=== PATIENT | male | born 1950 | race Caucasian/White ===

== ENCOUNTER 2016-11-26 15:41 | Emergency (ER) | payer BC, OTHER ==
[2016-11-26 16:10] VITALS: BP 153/90; PULSE 62; TEMP 98.4; BMI 27.3
[2016-11-26] MEDS ORDERED: ACETAMINOPHEN 325 MG TABLET (FP) PO ONE (17:44)
[2016-11-26] MEDS ORDERED: ACETAMINOPHEN 325 MG TABLET (FP) ONE (17:46)
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
== END 2016-11-26 17:49 | disposition home or self-care (01) ==
LOC: JERFT 15:41
DX: S43.401A Unspecified sprain of right shoulder joint, initial encounter (principal); I10 Essential (primary) hypertension; I48.91 Unspecified atrial fibrillation; F17.210 Nicotine dependence, cigarettes, uncomplicated; V43.62XA Car passenger injured in collision with other type car in traffic accident, initial encounter; Y92.414 Local residential or business street as the place of occurrence of the external cause; Y93.89 Activity, other specified
CPT/HCPCS: 99281-25

== ENCOUNTER 2018-04-28 10:50 | Emergency (ER) | payer OTHER, BC ==
[2018-04-28 11:09] VITALS: BP 146/88; TEMP 98.1; BMI 27.7
[2018-04-28 11:38] VITALS: PULSE 46
--- NOTE | 2018-04-28 11:38 | PDOC ---
History of Present Illness - General Chief Complaint: Pain Stated Complaint: LT HAND PAIN Time Seen by Provider: 04/28/18 11:19 - History of Present Illness Initial Comments: 67-year-old male presents for evaluation of left hand pain times a few hours. He denies any trauma or precipitating event. No prior problems with the hand. No other associated symptoms. He takes overall toe for atrial fibrillation. 04/28/18 11:32 Past History - Past Medical History Allergies/Adverse Reactions: Allergies Allergy/AdvReac Type Severity Reaction Status Date / Time Penicillins Allergy Rash Verified 04/28/18 11:04 ibuprofen AdvReac Verified 04/28/18 11:04 Home Medications: Ambulatory Orders Methylprednisolone [Medrol Dose Rojelio] 4 mg PO ASDIR #21 tablet 04/28/18 Rivaroxaban [Xarelto -] 20 mg PO DAILY 04/28/18 Anemia: No Asthma: No Cancer: Yes (CA BLADDER S/P IN 2007) Cardiac Disorders: Yes (A FIB) CVA: No COPD: No CHF: No Dementia: No Diabetes: No GI Disorders: No Disorders: No HTN: Yes Hypercholesterolemia: No Liver Disease: No Seizures: No Thyroid Disease: No - Surgical History Abdominal Surgery: No Appendectomy: Yes Cardiac Surgery: No Cholecystectomy: No Lung Surgery: No Neurologic Surgery: No Orthopedic Surgery: No - Suicide/Smoking/Psychosocial Hx Smoking Status: Yes Smoking History: Former smoker Have you smoked in the past 12 months: No Number of Cigarettes Smoked Daily: 0 If you are a former smoker, when did you quit?: 2001 Cigars Per Day: 1 Information on smoking cessation initiated: No Hx Alcohol Use: No Drug/Substance Use Hx: No Substance Use Type: None Hx Substance Use Treatment: No Review of Systems - Review of Systems Musculoskeletal: Yes: See HPI All Other Systems: Reviewed and Negative *Physical Exam - Vital Signs Last Vital Signs Temp Pulse Resp BP Pulse Ox 98.1 F 44 L 19 146/88 99 04/28/18 11:05 04/28/18 11:05 04/28/18 11:05 04/28/18 11:05 04/28/18 11:05 - Physical Exam Comments: Left hand is mildly erythemic over the dorsum of the third MCP J. There is sensitivity without warmth or induration. There is mild discomfort with extremes of flexion and extension. There is no tenderness over the flexor surface there is no pain with passive stretch or sausagelike edema. FDS and FDP work independently. He has no gross sensorimotor deficits she's neurovascularly intact. 04/28/18 11:37 Medical Decision Making - Medical Decision Making This appears to be acute presentation of gout versus pseudogout. I'll treat him with a Medrol Dosepak and have him follow-up with his primary care physician next 1-2 days. Of note he actually does not have a primary care physician I will give him a list of local providers. 04/28/18 11:38 *DC/Admit/Observation/Transfer Diagnosis at time of Disposition: Gout attack - Discharge Dispostion Disposition: HOME Condition at time of disposition: Stable Decision to Admit order: No - Referrals Referrals: Murali Pena MD [Staff Physician] - - Patient Instructions Printed Discharge Instructions: DI for Gout, Gout Additional Instructions: It appeared to be suffering from an acute gout attack. Please take the medication I prescribed T-wave in its entirety which will help with your pain and inflammation of the left hand. If your symptoms worsen or go unresolved prior to follow-up with her primary care physician please return to the emergency room. I've provided fever primary care doctor in the area who his local he should follow up with. - Post Discharge Activity
== END 2018-04-28 11:48 | disposition home or self-care (01) ==
LOC: JERFT 10:50
DX: M10.9 Gout, unspecified (principal)
CPT/HCPCS: 99281-25

== ENCOUNTER 2019-05-01 11:46 | Emergency (ER) | payer OTHER, BC | END 2019-05-01 13:50 | disposition home or self-care (01) | LOC: JER 11:46 ==

== ENCOUNTER 2019-11-26 14:31 | Inpatient (IN) | payer OTHER, BC ==
--- NOTE | 2019-11-26 14:42 | PDOC ---
Rapid Medical Evaluation Chief Complaint: Pain, Acute Time Seen by Provider: 11/26/19 14:39 Medical Evaluation: Allergies Allergy/AdvReac Type Severity Reaction Status Date / Time Penicillins Allergy Rash Verified 05/01/19 12:10 ibuprofen AdvReac Verified 05/01/19 12:10 Vital Signs Temp Pulse Resp BP Pulse Ox 98 F 69 18 113/75 99 11/26/19 14:36 11/26/19 14:36 11/26/19 14:36 11/26/19 14:36 11/26/19 14:36 11/26/19 14:39 I have performed a brief in-person evaluation of this patient. The patient presents with a chief complaint of: sent in by PCP Dr. Brown for dark stools and abd pains x 1 wk. Denies rectal bleeding, N/V Pertinent physical exam findings: A&O x 3 in NAD. I have ordered the following: CBC, CMP, Lipase The patient will proceed to the ED for further evaluation. Discharge Disposition - Diagnosis Abdominal pain Qualifiers: Abdominal location: lower abdomen, unspecified Qualified Code(s): R10.30 - Lower abdominal pain, unspecified - Discharge Dispostion Condition at time of disposition: Stable - Referrals - Patient Instructions - Post Discharge Activity
[2019-11-26 15:44] LABS: BASO % 0.7 % (0-2.0); HEMATOCRIT 43.7 % (35.4-49); HEMOGLOBIN 14.5 GM/dL (11.7-16.9); LYMPH % 24.5 % (8-40); MCH 31.2 pg (25.7-33.7); MCHC 33.2 g/dl (32.0-35.9); MEAN CELL VOLUME 93.9 fl (80-96); MEAN PLT VOLUME 7.9 fl (7.5-11.1); MONO % 10.1 % (3.8-10.2); NEUT % 60.7 % (42.8-82.8); PLATELET COUNT 214 K/MM3 (134-434); RBC 4.65 M/mm3 (4.00-5.60); RDW 13.7 % (11.9-15.9); WHITE BLOOD COUNT 5.5 K/mm3 (4.0-10.0)
[2019-11-26 16:00] LABS: INR 1.39 (0.83-1.09); PROTHROMBIN TIME (PATIENT) 16.4 SEC (9.7-13.0)
[2019-11-26 16:02] LABS: ACTIVATED PTT 41.3 SECONDS (25.2-36.5)
[2019-11-26 16:08] LABS: LIPASE 115 U/L (73-393)
[2019-11-26 16:14] LABS: ALBUMIN 3.5 g/dl (3.4-5.0); BILIRUBIN,TOTAL 0.8 mg/dL (0.2-1); BLOOD UREA NITROGEN 22.2 mg/dL (7-18); CALCIUM 8.8 mg/dL (8.5-10.1); CREATININE 0.9 mg/dL (0.55-1.3); POTASSIUM 3.9 mmol/L (3.5-5.1); TOT PROT 6.8 g/dl (6.4-8.2)
--- NOTE | 2019-11-26 16:20 | PDOC ---
History of Present Illness - General Chief Complaint: Pain, Acute Stated Complaint: SENT BY PCP/ABD PAIN Time Seen by Provider: 11/26/19 14:39 History Source: Patient - History of Present Illness Initial Comments: 11/26/19 16:26 69 year old male c/o dizziness, black stool x 4 days, epigastric area pain radiating to the midsternal area. decreased PO intake. denies fever/ chills, NVD. Last BM this AM. patient sent by Dr. baker for evaluation Currently on xarelto , heart surgery 9 months ago, gastric sleeve, GI: Dr. Burt Cardiology: [facility] 11/26/19 17:58 Past History - Past Medical History Allergies/Adverse Reactions: Allergies Allergy/AdvReac Type Severity Reaction Status Date / Time Penicillins Allergy Rash Verified 11/26/19 14:39 ibuprofen AdvReac Verified 11/26/19 14:39 Home Medications: Ambulatory Orders Rivaroxaban [Xarelto -] 20 mg PO DAILY 04/28/18 Anemia: No Asthma: No Cancer: Yes (CA BLADDER S/P IN 2007) Cardiac Disorders: Yes (A FIB) CVA: No COPD: No CHF: No Dementia: No Diabetes: No GI Disorders: No Disorders: No HTN: Yes Hypercholesterolemia: No Liver Disease: No Seizures: No Thyroid Disease: No - Surgical History Abdominal Surgery: No Appendectomy: Yes Cardiac Surgery: No Cholecystectomy: No Lung Surgery: No Neurologic Surgery: No Orthopedic Surgery: No - Immunization History Immunization Up to Date: Yes - Psycho Social/Smoking Cessation Hx Smoking Status: Yes Smoking History: Never smoked Have you smoked in the past 12 months: No Number of Cigarettes Smoked Daily: 0 If you are a former smoker, when did you quit?: 2000 Cigars Per Day: 1 Hx Alcohol Use: No Drug/Substance Use Hx: No Substance Use Type: None Hx Substance Use Treatment: No Review of Systems - Review of Systems Able to Perform ROS?: Yes Is the patient limited Sinhala proficient: No Constitutional: No: Symptoms Reported, See HPI, Chills, Diaphoresis, Fever, Loss of Appetite, Malaise, Night Sweats, Weakness, Weight Stable, Unintentional Wgt. Loss, Unexplained wgt Loss, Other ABD/GI: Yes: Abdominal cramping, Tarry Stools *Physical Exam - Vital Signs Last Vital Signs Temp Pulse Resp BP Pulse Ox 98 F 69 18 113/75 99 11/26/19 14:36 11/26/19 14:36 11/26/19 14:36 11/26/19 14:36 11/26/19 14:36 - Physical Exam General Appearance: Yes: Appropriately Dressed Respiratory/Chest: positive: Lungs Clear, Normal Breath Sounds Cardiovascular: positive: Regular Rhythm, Regular Rate Gastrointestinal/Abdominal: positive: Normal Bowel Sounds, Tender (RUQ), Soft Rectal Exam: positive: melena ED Treatment Course - LABORATORY CBC & Chemistry Diagram: 11/26/19 15:30 11/26/19 15:30 - ADDITIONAL ORDERS Additional order review: Laboratory Results 11/26/19 11/26/19 11/26/19 15:30 15:30 15:30 PT with INR 16.40 H INR 1.39 H PTT (Actin FS) 41.3 H Sodium 140 Potassium 3.9 Chloride 108 H Carbon Dioxide 30 Anion Gap 2 L BUN 22.2 H Creatinine 0.9 Est GFR (CKD-EPI)AfAm 100.65 Est GFR (CKD-EPI)NonAf 86.84 Random Glucose 105 Calcium 8.8 Total Bilirubin 0.8 AST 21 ALT 23 Alkaline Phosphatase 41 L Total Protein 6.8 Albumin 3.5 Lipase 115 11/26/19 15:30 RBC 4.65 MCV 93.9 MCHC 33.2 RDW 13.7 MPV 7.9 Neutrophils % 60.7 Lymphocytes % 24.5 Monocytes % 10.1 Eosinophils % 4.0 Basophils % 0.7 ED Progress Note - Progress Note Progress Note: 11/26/19 18:56 A: GI bleeding; chest pain P: labs ekg stool guaiac : + admission Medical Decision Making - Medical Decision Making 11/26/19 19:22 patient signed out to Francisco TONG. patient to be admitted under Dr. baker 11/26/19 21:07 Discharge - Discharge Information Problems reviewed: Yes Clinical Impression/Diagnosis: Abdominal pain Qualifiers: Abdominal location: lower abdomen, unspecified Qualified Code(s): R10.30 - Lower abdominal pain, unspecified GI bleeding Qualifiers: GI bleed type/associated pathology: melena Qualified Code(s): K92.1 - Melena Chest pain Qualifiers: Chest pain type: unspecified Qualified Code(s): R07.9 - Chest pain, unspecified Condition: Stable - Admission Yes - Follow up/Referral - Patient Discharge Instructions - Post Discharge Activity
[2019-11-26] MEDS ORDERED: PANTOPRAZOLE SODIUM 40 MG VIAL IVPB ONE (19:23)
[2019-11-26] MEDS ORDERED: PANTOPRAZOLE SODIUM 40 MG/100 ML BAG IVPB ONE (20:04)
--- NOTE | 2019-11-26 20:25 | HP ---
Admitting History and Physical - Primary Care Physician PCP: Dr. Brown - Admission Chief Complaint: sent by PCP for dark stools, abd pain x1 week History of Present Illness: 69 year old male with PMHx of Ca bldder s/p in 2007, HTN, a-fin (s/p cyroablation 9 months ago) sent to the ER by PMD for black stool x 4 days, epigastric area pain radiating to the mid-sternal area, patient also c/o dizziness, decreased PO intake. Patient denies SOB, fever/ chills, N/V/D. Last BM this AM. According to patient had colonoscopy 2-3 years, and endoscopy less than 1 year ago, no acute findings were reported. History Source: Patient Limitations to Obtaining History: No Limitations - Past Medical History Cardiovascular: Yes: AFIB, HTN, Hyperlipdemia Heme/Onc: Yes: Cancer (bladder) - Past Surgical History Past Surgical History: Yes: Appendectomy, Bariatric Surgery (gastric sleeve) - Smoking History Smoking history: Never smoked Have you smoked in the past 12 months: No Aproximately how many cigarettes per day: 0 If you are a former smoker, when did you quit?: 2000 - Alcohol/Substance Use Hx Alcohol Use: Yes Number of Drinks Daily: 1 (occasional 1-2 drinks per week) - Social History Usual Living Arrangement: Yes: With Spouse ADL: Independent History of Recent Travel: Yes ([facility]) Home Medications - Allergies Allergies/Adverse Reactions: Allergies Allergy/AdvReac Type Severity Reaction Status Date / Time Penicillins Allergy Rash Verified 11/26/19 14:39 ibuprofen AdvReac Verified 11/26/19 14:39 - Home Medications Home Medications: Ambulatory Orders Rivaroxaban [Xarelto -] 20 mg PO DAILY 04/28/18 Family Medical History Family Hx Cancer: Father (pancreatic ca) Family Hx Cardiac Disorders: Mother (HTN) Review of Systems - Review of Systems Constitutional: reports: Loss of Appetite Eyes: reports: No Symptoms HENT: reports: No Symptoms Neck: reports: No Symptoms Cardiovascular: reports: No Symptoms Respiratory: reports: No Symptoms Gastrointestinal: reports: Abdominal Pain, Other (dark stools) Genitourinary: reports: No Symptoms Musculoskeletal: reports: No Symptoms Integumentary: reports: No Symptoms Neurological: reports: Dizziness Endocrine: reports: No Symptoms Hematology/Lymphatic: reports: No Symptoms Psychiatric: reports: No Symptoms Physical Examination Vital Signs: Vital Signs Temperature 97.9 F 11/26/19 17:30 Pulse Rate 50 L 11/26/19 17:30 Respiratory Rate 20 11/26/19 17:30 Blood Pressure 115/82 11/26/19 17:30 O2 Sat by Pulse Oximetry (%) 98 11/26/19 17:30 Constitutional: Yes: No Distress, Calm Eyes: Yes: Conjunctiva Clear, EOM Intact HENT: Yes: Atraumatic, Normocephalic Neck: Yes: Supple, Trachea Midline Cardiovascular: Yes: Regular Rate and Rhythm Respiratory: Yes: Regular, CTA Bilaterally Gastrointestinal: Yes: Normal Bowel Sounds, Soft, Tenderness (mild tender epigastric area) ...Rectal Exam: Yes: Guaiac Positive Renal/: Yes: WNL Musculoskeletal: Yes: WNL Extremities: Yes: WNL Edema: No Peripheral Pulses WNL: Yes Neurological: Yes: Alert, Oriented Labs: CBC, BMP 11/26/19 15:30 11/26/19 15:30 Imaging - Results Chest X-ray: Report Reviewed (no acute consolidation/ infiltration) Ultrasound: Report Reviewed (ABD: no evidence of acute cholecystitis, 1 cm renal lower pole cyst) Problem List - Problems (1) GI bleeding Code(s): K92.2 - GASTROINTESTINAL HEMORRHAGE, UNSPECIFIED Qualifiers: GI bleed type/associated pathology: melena Qualified Code(s): K92.1 - Melena (2) Chest pain Code(s): R07.9 - CHEST PAIN, UNSPECIFIED Qualifiers: Chest pain type: unspecified Qualified Code(s): R07.9 - Chest pain, unspecified (3) Abdominal pain Code(s): R10.9 - UNSPECIFIED ABDOMINAL PAIN Qualifiers: Abdominal location: lower abdomen, unspecified Qualified Code(s): R10.30 - Lower abdominal pain, unspecified (4) A-fib Code(s): I48.91 - UNSPECIFIED ATRIAL FIBRILLATION (5) HTN (hypertension) Code(s): I10 - ESSENTIAL (PRIMARY) HYPERTENSION (6) HLD (hyperlipidemia) Code(s): E78.5 - HYPERLIPIDEMIA, UNSPECIFIED (7) At risk for dehydration due to poor fluid intake Code(s): Z91.89 - OTH PERSONAL RISK FACTORS, NOT ELSEWHERE CLASSIFIED Assessment/Plan 69 year old male with PMHx of Ca bldder s/p in 2007, A-fib (s/p cryoablation 9 months ago) , HTN sent to the ER by PMD for black stool x 4 days, epigastric area pain radiating to the mid-sternal area, patient also c/o dizziness, decreased PO intake. According to patient had colonoscopy 2-3 years, and endoscopy less than 1 year ago, no acute findings were reported. # Abdominal pain # Positive occult blood r/o GI bleed - LFTs, lipase: wnl - ABD US: no evidence of acute cholecystitis, 1 cm renal lower pole cyst - occult blood positive, hgb: 14.5 wnl --> In ED given PPI IVPB x1 - Continue with IV fluids - continue with PPI daily - NPO over night - Monitor H/H - Follow up GI in AM # chest pain (epigastric in nature) less likely ACS # HTN/ A-fib ( s/p cryoablation 9 months ago) tele, cardiac monitoring - trop: negative - EKG: no acute s/t changes - hold xarelto - monitor vitals - cardiology follow in AM # Dehydration likely due to poor po intake - bun: 22.2 - give 1/2 NS x 24 hours - follow up BMP in AM FEN: NPO, IVF, monitor lytes VTE: SCDs Dispo: tele Visit type - Emergency Visit Emergency Visit: Yes ED Registration Date: 11/26/19 Care time: The patient presented to the Emergency Department on the above date and was hospitalized for further evaluation of their emergent condition. - New Patient This patient is new to me today: Yes Date on this admission: 11/26/19 - Critical Care Critical Care patient: No
[2019-11-26] MEDS ORDERED: SODIUM CHLORIDE 1,000 ML IV SCH (21:45)
[2019-11-27 01:10] VITALS: BMI 26.3
[2019-11-27 07:35] LABS: BLOOD UREA NITROGEN 20.2 mg/dL (7-18); CALCIUM 8.3 mg/dL (8.5-10.1); CREATININE 0.8 mg/dL (0.55-1.3); POTASSIUM 4.4 mmol/L (3.5-5.1)
[2019-11-27] MEDS ORDERED: PANTOPRAZOLE SODIUM 40 MG VIAL IVPUSH SCH (10:00)
--- NOTE | 2019-11-27 12:58 | CON.CARD ---
Consult Consult Specialty:: Cardiology Referred by:: Stephanie Reason for Consultation:: Anticoagulation management In the setting of GI bleed - History of Present Illness Chief Complaint: Black stools History of Present Illness: The patient is a 69-year-old man, with a history of hypertension, atrial fibrillation, status post ablation earlier this year, on Xarelto, now presenting we have abdominal pain and melena. The patient reports good exercise tolerance. Denies chest pains and shortness of breath on effort. No palpitations. He is currently in sinus bradycardia with first-degree AV block. No acute ST-T changes. No chest pains. Breathing comfortably. - History Source History Provided By: Patient, Medical Record Limitations to Obtaining History: No Limitations - Past Medical History Cardio/Vascular: Yes: AFIB, HTN, Hyperlipdemia Gastrointestinal: Yes: Cancer (bladder) - Past Surgical History Past Surgical History: Yes: Appendectomy, Bariatric Surgery (gastric sleeve) - Alcohol/Substance Use Hx Alcohol Use: Yes Number of Drinks Daily: 1 (occasional 1-2 drinks per week) - Smoking History Smoking history: Never smoked Have you smoked in the past 12 months: No Aproximately how many cigarettes per day: 0 If you are a former smoker, when did you quit?: 2000 - Social History Usual Living Arrangement: With Spouse ADL: Independent History of Recent Travel: [place] ([place]) Home Medications - Allergies Allergies/Adverse Reactions: Allergies Allergy/AdvReac Type Severity Reaction Status Date / Time Penicillins Allergy Rash Verified 11/26/19 14:39 ibuprofen AdvReac Verified 11/26/19 14:39 - Home Medications Home Medications: Ambulatory Orders Rivaroxaban [Xarelto -] 20 mg PO DAILY 04/28/18 Review of Systems - Review of Systems Constitutional: reports: No Symptoms Eyes: reports: No Symptoms HENT: reports: No Symptoms, Hearing Loss Neck: reports: No Symptoms Cardiovascular: reports: No Symptoms Respiratory: reports: No Symptoms Gastrointestinal: reports: Abdominal Pain, Bloating, Melena Genitourinary: reports: No Symptoms Breasts: reports: No Symptoms Reported Musculoskeletal: reports: No Symptoms Integumentary: reports: No Symptoms Neurological: reports: No Symptoms Endocrine: reports: No Symptoms Hematology/Lymphatic: reports: No Symptoms Psychiatric: reports: No Symptoms Vital Signs: Vital Signs Temperature 98.2 F 11/27/19 07:58 Pulse Rate 46 L 11/27/19 07:58 Respiratory Rate 20 11/27/19 08:03 Blood Pressure 126/78 11/27/19 07:58 O2 Sat by Pulse Oximetry (%) 96 11/27/19 08:03 Constitutional: Yes: Well Nourished, No Distress, Calm Eyes: Yes: WNL, Conjunctiva Clear, EOM Intact HENT: Yes: WNL, Atraumatic, Normocephalic Neck: Yes: WNL, Supple, Trachea Midline Respiratory: Yes: WNL, Regular, CTA Bilaterally Gastrointestinal: Yes: WNL, Normal Bowel Sounds, Soft Renal/: Yes: WNL Cardiovascular: Yes: WNL, Bradycardia, Pulse Irregular JVD: No Carotid Bruit: No PMI: Non-Displaced Heart Sounds: Yes: S1, S2 Murmur: Yes: Systolic Murmur, Grade 2 Musculoskeletal: Yes: WNL Extremities: Yes: WNL Edema: No Peripheral Pulses WNL: Yes Peripheral Pulses: 2+ Left Carotid, 2+ Right Carotid, 2+ Left Femoral, 2+ Right Femoral, 2+ Left Popliteal, 2+ Right Popliteal, 2+ Left Doralis Pedis, 2+ Right Dorsalis Pedis Integumentary: Yes: WNL Neurological: Yes: WNL, Alert, Oriented ...Motor Strength: WNL Psychiatric: Yes: WNL, Alert, Oriented - Other Data Labs, Other Data: CBC, BMP 11/26/19 15:30 11/27/19 06:23 INR, PTT INR 1.39 (0.83-1.09) H 11/26/19 15:30 Troponin, BNP 11/26/19 15:30 Troponin I < 0.02 Troponin, BNP 11/26/19 15:30 Troponin I < 0.02 Assessment/Plan The patient is a 69-year-old man, with a history of hypertension, atrial fibrillation, status post ablation earlier this year, on Xarelto, now presenting we have abdominal pain and melena. The patient reports good exercise tolerance. Denies chest pains and shortness of breath on effort. No palpitations. He is currently in sinus bradycardia with first-degree AV block. No acute ST-T changes. No chest pains. Breathing comfortablyContinue to hold Xarelto temporarily until bleeding issues are resolved. Xarelto should be resumed as soon as possible, as per GI. The patient is stable from the cardiac standpoint. No need for further cardiac work-up at this point. No need for cardiac monitoring. May proceed with GI work-up as deemed necessary. Please do not hesitate to call us PRN. Please arrange for an outpatient follow-up with his own toolman. PRN.
--- NOTE | 2019-11-27 13:15 | PN ---
Progress Note, Physician Chief Complaint: AWAKE ALERT EVENTS AND NOTES REVIEWED NAD - Current Medication List Current Medications: Active Medications Sodium Chloride (Normal Saline -) 1,000 mls @ 50 mls/hr IV ASDIR [facility] Stop: 11/27/19 21:36 Last Admin: 11/26/19 22:19 Dose: 50 mls/hr Pantoprazole Sodium (Protonix Iv) 40 mg IVPUSH DAILY [facility] Last Admin: 11/27/19 09:31 Dose: 40 mg - Objective Vital Signs: Vital Signs Temperature 98.2 F 11/27/19 07:58 Pulse Rate 46 L 11/27/19 07:58 Respiratory Rate 11/27/19 08:03 Blood Pressure 126/78 11/27/19 07:58 O2 Sat by Pulse Oximetry (%) 96 11/27/19 08:03 Constitutional: Yes: Mild Distress Cardiovascular: Yes: Pulse Irregular Respiratory: Yes: Diminished Gastrointestinal: Yes: Soft Genitourinary: Yes: WNL Musculoskeletal: Yes: Muscle Weakness Edema: No Integumentary: Yes: Tattoos Neurological: Yes: WNL ...Motor Strength: WNL Psychiatric: Yes: WNL Labs: CBC, BMP 11/26/19 15:30 11/27/19 06:23 INR, PTT INR 1.39 (0.83-1.09) H 11/26/19 15:30 Problem List - Problems (1) A-fib Code(s): I48.91 - UNSPECIFIED ATRIAL FIBRILLATION (2) Abdominal pain Code(s): R10.9 - UNSPECIFIED ABDOMINAL PAIN Qualifiers: Abdominal location: lower abdomen, unspecified Qualified Code(s): R10.30 - Lower abdominal pain, unspecified (3) At risk for dehydration due to poor fluid intake Code(s): Z91.89 - OTH PERSONAL RISK FACTORS, NOT ELSEWHERE CLASSIFIED (4) Chest pain Code(s): R07.9 - CHEST PAIN, UNSPECIFIED Qualifiers: Chest pain type: unspecified Qualified Code(s): R07.9 - Chest pain, unspecified (5) GI bleeding Code(s): K92.2 - GASTROINTESTINAL HEMORRHAGE, UNSPECIFIED Qualifiers: GI bleed type/associated pathology: melena Qualified Code(s): K92.1 - Melena (6) HLD (hyperlipidemia) Code(s): E78.5 - HYPERLIPIDEMIA, UNSPECIFIED (7) HTN (hypertension) Code(s): I10 - ESSENTIAL (PRIMARY) HYPERTENSION Assessment/Plan PROTONIX IV CONTINUE GI EVAL STOP ELIQUIS FOR NOW CARDIOLOGY WORKUP ON TELE F/U APPRECIATED IVF NPO
--- NOTE | 2019-11-27 13:23 | EKG ---
Test Reason : Blood Pressure : / mmHG Vent. Rate : 047 BPM Atrial Rate : 047 BPM P-R Int : 202 ms QRS Dur : 104 ms QT Int : 458 ms P-R-T Axes : 042 -12 022 degrees QTc Int : 405 ms SINUS BRADYCARDIA OTHERWISE NORMAL ECG WHEN COMPARED WITH ECG OF 28-JUN-2014 03:54, SINUS RHYTHM HAS REPLACED ATRIAL FIBRILLATION VENT. RATE HAS DECREASED BY 40 BPM QT HAS SHORTENED Confirmed by ROCIO ASKEW MD ([id number]) on 11/27/2019 1:22:51 PM Referred By: Confirmed By:ROCIO ASKEW MD
--- NOTE | 2019-11-27 14:54 | CON.GI ---
Consult Consult Specialty:: Gastroenterology ( covering Dr. Burt) Referred by:: Dr. Brown Reason for Consultation:: melena - History of Present Illness Chief Complaint: epigastric pain, acid reflux, early satiety and melena History of Present Illness: 69M is admitted for epigastric pain with melena. His Hb is 14.5. He is s/p gastric sleeve bariatric surgery 5 years ago which led to 100 lbs weight loss. Several months ago he developed new onset acid reflux and early satiety which more recently has evolved into epigastric pain and melena. He denies vomiting and dysphagia. He describes having had an EGD in Dr Burt's office by another physician and believes that the results were normal. He has had a normal colonoscopy with Dr. Marquis Leach several years ago. He denies any h/o ulcer disease. He is on Xarelto for atrial fibrillation despite having undergone an ablation at [facility] earlier this year. He is currently in sinus rhythm at 50cc/hr - History Source History Provided By: Patient Limitations to Obtaining History: No Limitations - Past Medical History Cardio/Vascular: Yes: AFIB (ablated at [facility] in 2019 now with sinus bradycardia), HTN, Hyperlipdemia Pulmonary: Yes: Bronchitis Gastrointestinal: Yes: GERD, Other (gastric sleeve surgery 5 years ago) Hepatobiliary: Yes: Other (fatty liver) Renal/: Yes: Cancer (bladder cancer s/p TURBTs and BCG infusions) - Past Surgical History Past Surgical History: Yes: Appendectomy, Bariatric Surgery (gastric sleeve), Colonoscopy, Tonsillectomy, Upper Endoscopy Additional Surgical History: excision of benign skin lesion - Alcohol/Substance Use Hx Alcohol Use: Yes Number of Drinks Daily: 1 (occasional 1-2 drinks per week) - Smoking History Smoking history: Former smoker Have you smoked in the past 12 months: No Aproximately how many cigarettes per day: 0 (does smoke cigars several times a week) If you are a former smoker, when did you quit?: 2000 - Social History Usual Living Arrangement: With Spouse ADL: Independent 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 Place of : [facility] History of Recent Travel: Yes ([place]) Home Medications - Allergies Allergies/Adverse Reactions: Allergies Allergy/AdvReac Type Severity Reaction Status Date / Time Penicillins Allergy Rash Verified 11/26/19 14:39 ibuprofen AdvReac Verified 11/26/19 14:39 - Home Medications Home Medications: Ambulatory Orders Rivaroxaban [Xarelto -] 20 mg PO DAILY 04/28/18 Family Medical History Family Hx Cancer: Grandfather (maternal) (pancreatic cancer), Grandfather ( paternal) (pancreatic cancer), Father Family Hx Congestive Heart Failure: Mother Review of Systems - Review of Systems Constitutional: reports: Unintentional Wgt. Loss (13 lbs in a month due to early satiety) Eyes: reports: No Symptoms HENT: reports: No Symptoms Neck: reports: No Symptoms Cardiovascular: reports: No Symptoms Respiratory: reports: No Symptoms Gastrointestinal: reports: Abdominal Pain, Melena, Other (early satiety) Genitourinary: reports: No Symptoms Physical Exam-GI Vital Signs: Vital Signs Temperature 98.2 F 11/27/19 14:48 Pulse Rate 48 L 11/27/19 14:48 Respiratory Rate 20 11/27/19 14:48 Blood Pressure 137/78 11/27/19 14:48 O2 Sat by Pulse Oximetry (%) 96 11/27/19 08:03 CBC,CMP WBC 5.5 K/mm3 (4.0-10.0) 11/26/19 15:30 RBC 4.65 M/mm3 (4.00-5.60) 11/26/19 15:30 Hgb 14.5 GM/dL (11.7-16.9) 11/26/19 15:30 Hct 43.7 % (35.4-49) 11/26/19 15:30 MCV 93.9 fl (80-96) 11/26/19 15:30 MCH 31.2 pg (25.7-33.7) 11/26/19 15:30 MCHC 33.2 g/dl (32.0-35.9) 11/26/19 15:30 RDW 13.7 % (11.9-15.9) 11/26/19 15:30 Plt Count 214 K/MM3 (134-434) 11/26/19 15:30 MPV 7.9 fl (7.5-11.1) 11/26/19 15:30 Absolute Neuts (auto) 3.3 K/mm3 (1.5-8.0) 11/26/19 15:30 Neutrophils % 60.7 % (42.8-82.8) 11/26/19 15:30 Lymphocytes % 24.5 % (8-40) 11/26/19 15:30 Monocytes % 10.1 % (3.8-10.2) 11/26/19 15:30 Eosinophils % 4.0 % (0-4.5) 11/26/19 15:30 Basophils % 0.7 % (0-2.0) 11/26/19 15:30 Nucleated RBC % 0 % (0-0) 11/26/19 15:30 Sodium 143 mmol/L (136-145) 11/27/19 06:23 Potassium 4.4 mmol/L (3.5-5.1) 11/27/19 06:23 Chloride 109 mmol/L (98-107) H 11/27/19 06:23 Carbon Dioxide 31 mmol/L (21-32) 11/27/19 06:23 Anion Gap 3 MMOL/L (8-16) L 11/27/19 06:23 BUN 20.2 mg/dL (7-18) H 11/27/19 06:23 Creatinine 0.8 mg/dL (0.55-1.3) 11/27/19 06:23 Est GFR (CKD-EPI)AfAm 105.64 11/27/19 06:23 Est GFR (CKD-EPI)NonAf 91.15 11/27/19 06:23 Random Glucose 87 mg/dL (74-106) 11/27/19 06:23 Calcium 8.3 mg/dL (8.5-10.1) L 11/27/19 06:23 Total Bilirubin 0.8 mg/dL (0.2-1) 11/26/19 15:30 AST 21 U/L (15-37) 11/26/19 15:30 ALT 23 U/L (13-61) 11/26/19 15:30 Alkaline Phosphatase 41 U/L (45-117) L 11/26/19 15:30 Troponin I < 0.02 ng/ml (0.00-0.05) 11/26/19 15:30 Total Protein 6.8 g/dl (6.4-8.2) 11/26/19 15:30 Albumin 3.5 g/dl (3.4-5.0) 11/26/19 15:30 Lipase 115 U/L (73-393) 11/26/19 15:30 Current Medications Generic Name Dose Route Start Last Admin Trade Name Hamzah PRN Reason Stop Dose Admin Sodium Chloride 1,000 mls @ 50 mls/hr 11/26/19 21:45 11/26/19 22:19 Normal Saline - IV 11/27/19 21:36 50 mls/hr ASDIR [facility] Administration Pantoprazole Sodium 40 mg 11/27/19 10:00 11/27/19 09:31 Protonix Iv IVPUSH 40 mg DAILY [facility] Administration Constitutional: Yes: Calm Eyes: Yes: Conjunctiva Clear HENT: Yes: Atraumatic Neck: Yes: Supple Cardiovascular: Yes: Regular Rate and Rhythm Respiratory: Yes: CTA Bilaterally Gastrointestinal Inspection: Yes: Scars (healed laparoscopic and RLQ incisions) ...Auscultate: Yes: Normoactive Bowel Sounds ...Palpate: Yes: Soft, Other (nontender) ...Rectal Exam: Yes: Guaiac Positive (black soft strongly guaiac positive stool) Edema: No Integumentary: Yes: Tattoos Neurological: Yes: Alert, Oriented Labs: CBC, BMP 11/26/19 15:30 11/27/19 06:23 INR, PTT INR 1.39 (0.83-1.09) H 11/26/19 15:30 Imaging - Results Ultrasound: Report Reviewed ( Final Report US ABDOMEN US -LIMITED Show Printer-Friendly Version with Image (1 of 1) Show Printer-Friendly Version without images Patient Name: Tate Siddiqui : 1950 ID: [id number] Study Date: 26-Nov-2019 16:48 [facility] Name: TATE SIDDIQUI DEPARTMENT OF RADIOLOGY Phys: Sharri Hudson NP : 1950 Age : 69 Sex: M [facility] Acct: [id number] Loc: [address] Exam Date: 11/26/19 Status: BIPIN [place] [id number] Unit Number : [id number] EXAM#: TYPE/ EXAM: RESULT: [id number] US/ABDOMEN US -LIMITED Right upper quadrant abdomen ultrasound Clinical information: right upper quadrant and epigastric pain No discrete biliary calculus is seen. The gallbladder demonstrates no definite abnormality. No pericholecystic fluid is noted. The common bile duct diameter appears unremarkable measuring 0.4 cm. There is probable diffuse fatty infiltration of the liver. The liver appears borderline in overall size. No obvious soft tissue mass lesion is identified. 1.8 cm and 0.7 cm cysts are noted. The pancreas is partially obscured due to overlapping bowel gas. No obvious pathology is seen. No free intraperitoneal fluid is noted. There is no right hydronephrosis. A 1 cm right renal lower pole exophytic cortical hypoechoic focus is seen probably representing a cyst and much less likely a solid nodule. This 1 cm cortical focus was not definitely appreciated at the time of a prior ultrasound exam of 10/07/2012. The right kidney appears unremarkable in size measuring 10.7 cm in length. Impression: No sonographic evidence of cholelithiasis or acute cholecystitis. There is no definite biliary tract dilatation. Probable diffuse hepatic steatosis. This finding however appears to be improved in comparison to a 2012 ultrasound exam. A 1 cm right renal lower pole exophytic cortical hypoechoic focus is seen probably representing a cyst and much less likely a solid nodule. Correlation with 3 month follow-up sonography is essential to document stability and lack of developing pathology. Reported By: Tate Gaston MD 11/26/191740 Sharri Hudson Technologist: Lucie Sharpe Transcribed Date/Time: 11/26/191740 Aircraft Engine Installer: Tate Gaston Printed Date/Time: By: Signed by: Tate Gaston Signed on: 26-Nov-2019 17:43) Problem List - Problems (1) GI bleeding Code(s): K92.2 - GASTROINTESTINAL HEMORRHAGE, UNSPECIFIED Qualifiers: GI bleed type/associated pathology: melena Qualified Code(s): K92.1 - Melena (2) Abdominal pain Code(s): R10.9 - UNSPECIFIED ABDOMINAL PAIN Qualifiers: Abdominal location: lower abdomen, unspecified Qualified Code(s): R10.30 - Lower abdominal pain, unspecified (3) Bariatric surgery status Code(s): Z98.84 - BARIATRIC SURGERY STATUS (4) GERD (gastroesophageal reflux disease) Code(s): K21.9 - GASTRO-ESOPHAGEAL REFLUX DISEASE WITHOUT ESOPHAGITIS (5) Early satiety Code(s): R68.81 - EARLY SATIETY (6) Bladder cancer Code(s): C67.9 - MALIGNANT NEOPLASM OF BLADDER, UNSPECIFIED (7) Weight loss Code(s): R63.4 - ABNORMAL WEIGHT LOSS (8) Fatty liver Code(s): K76.0 - FATTY (CHANGE OF) LIVER, NOT ELSEWHERE CLASSIFIED (9) Paroxysmal atrial fibrillation Code(s): I48.0 - PAROXYSMAL ATRIAL FIBRILLATION (10) S/P ablation of atrial fibrillation Code(s): Z98.890 - OTHER SPECIFIED POSTPROCEDURAL STATES; Z86.79 - PERSONAL HISTORY OF OTHER DISEASES OF THE CIRCULATORY SYSTEM (11) Family history of pancreatic cancer Code(s): Z80.0 - FAMILY HISTORY OF MALIGNANT NEOPLASM OF DIGESTIVE ORGANS Assessment/Plan Assessment: - Strongly g positive melena suggest UGI bleeding. Potential etiologies include ulcers, erosive gastritis and/or GERD, vascular ectasias and mandate an EGD. Dr Burt will return on 11/[address] Bradford will be covering this weekend should hemorrhage ensues. Will treat empirically but will allow him to eat. Xarelto should be withheld until a source is determined. He may need a repeat colonoscopy if no source is found. No endoscopy records are available here. - FH pancreatic cancer - Given his early satiety, pain and weight loss a CT will be obtained - Fatty liver can predispose to liver cancer. Given tattoos chet screen for liver diseases Plan: -- PPI therapy -- Serial CBCs -- NPO on 11/30 for possible EGD when Dr Burt returns. Maker NPO if signs of brisk bleeding ensue and contact Dr Bradford -- CT scan to exclude occult malignancy and SBO -- AFP
[2019-11-27] MEDS: PANTOPRAZOLE SODIUM 80 MG in SODIUM CHLORIDE 100 ML IVPB SCH (16:38)
[2019-11-27] MEDS ORDERED: PT OWN MED DRAWER 7, Y5N ONE (16:41)
[2019-11-28] MEDS: PANTOPRAZOLE SODIUM 80 MG in SODIUM CHLORIDE 100 ML IVPB SCH ×2 (02:59→14:47)
[2019-11-28 06:49] LABS: HEMATOCRIT 36.4 % (35.4-49); HEMOGLOBIN 12.4 GM/dL (11.7-16.9); MCH 31.2 pg (25.7-33.7); MCHC 34.1 g/dl (32.0-35.9); MEAN CELL VOLUME 91.6 fl (80-96); MEAN PLT VOLUME 7.8 fl (7.5-11.1); PLATELET COUNT 181 K/MM3 (134-434); RBC 3.98 M/mm3 (4.00-5.60); RDW 13.6 % (11.9-15.9); WHITE BLOOD COUNT 4.1 K/mm3 (4.0-10.0)
[2019-11-28 07:12] LABS: AMYLASE 40 U/L (25-115); ANION GAP 5 MMOL/L (8-16); CALCIUM 8.4 mg/dL (8.5-10.1); CHLORIDE 108 mmol/L (98-107); CO2 28 mmol/L (21-32); CREATININE 0.8 mg/dL (0.55-1.3); GLUCOSE,RANDOM 83 mg/dL (74-106); LIPASE 108 U/L (73-393); POTASSIUM 4.1 mmol/L (3.5-5.1); SODIUM 141 mmol/L (136-145)
--- NOTE | 2019-11-28 11:45 | PN ---
Progress Note (short form) - Note Progress Note: Pt denies abdominal pain. No more bleeding, Hgb stable. CT of abdomen done today, not yet officially read. I have reviewed the scan and do not see anything worrisome but would wait for radiologist interpretation. Pt amenable to EGD Saturday.
--- NOTE | 2019-11-28 13:17 | PN ---
Progress Note, Physician Chief Complaint: AWAKE ALERT NAD - Current Medication List Current Medications: Active Medications Pantoprazole Sodium 80 mg/ (Sodium Chloride) 100 mls @ 10 mls/hr IVPB Q10H [facility] Last Admin: 11/28/19 02:59 Dose: 10 mls/hr - Objective Vital Signs: Vital Signs Temperature 98.1 F 11/28/19 05:31 Pulse Rate 51 L 11/28/19 05:31 Respiratory Rate 20 11/28/19 08:52 Blood Pressure 134/69 11/28/19 05:31 O2 Sat by Pulse Oximetry (%) 97 11/28/19 08:52 Constitutional: Yes: Mild Distress Cardiovascular: Yes: Regular Rate and Rhythm Respiratory: Yes: WNL Gastrointestinal: Yes: WNL Genitourinary: Yes: WNL Musculoskeletal: Yes: Muscle Weakness Edema: No Integumentary: Yes: WNL Wound/Incision: Yes: Clean/Dry Neurological: Yes: WNL ...Motor Strength: WNL Psychiatric: Yes: WNL Labs: CBC, BMP 11/28/19 06:00 11/28/19 06:00 INR, PTT INR 1.39 (0.83-1.09) H 11/26/19 15:30 Problem List - Problems (1) A-fib Code(s): I48.91 - UNSPECIFIED ATRIAL FIBRILLATION (2) Abdominal pain Code(s): R10.9 - UNSPECIFIED ABDOMINAL PAIN Qualifiers: Abdominal location: lower abdomen, unspecified Qualified Code(s): R10.30 - Lower abdominal pain, unspecified (3) At risk for dehydration due to poor fluid intake Code(s): Z91.89 - OTH PERSONAL RISK FACTORS, NOT ELSEWHERE CLASSIFIED (4) Chest pain Code(s): R07.9 - CHEST PAIN, UNSPECIFIED Qualifiers: Chest pain type: unspecified Qualified Code(s): R07.9 - Chest pain, unspecified (5) GI bleeding Code(s): K92.2 - GASTROINTESTINAL HEMORRHAGE, UNSPECIFIED Qualifiers: GI bleed type/associated pathology: melena Qualified Code(s): K92.1 - Melena (6) HLD (hyperlipidemia) Code(s): E78.5 - HYPERLIPIDEMIA, UNSPECIFIED (7) HTN (hypertension) Code(s): I10 - ESSENTIAL (PRIMARY) HYPERTENSION Assessment/Plan PROTONIX IV CONTINUE GI EVAL STOP ELIQUIS FOR NOW CARDIOLOGY WORKUP ON TELE F/U APPRECIATED IVF NPO
[2019-11-29] MEDS ORDERED: PT OWN MED DRAWER 7, Y5N ONE (00:01)
[2019-11-29] MEDS: PANTOPRAZOLE SODIUM 80 MG in SODIUM CHLORIDE 100 ML IVPB SCH ×3 (00:41→22:12)
[2019-11-29 06:29] LABS: HEMATOCRIT 36.5 % (35.4-49); HEMOGLOBIN 12.3 GM/dL (11.7-16.9); MCHC 33.8 g/dl (32.0-35.9); MEAN CELL VOLUME 91.8 fl (80-96); MEAN PLT VOLUME 7.6 fl (7.5-11.1); PLATELET COUNT 183 K/MM3 (134-434); RBC 3.97 M/mm3 (4.00-5.60); RDW 13.5 % (11.9-15.9); WHITE BLOOD COUNT 4.1 K/mm3 (4.0-10.0)
--- NOTE | 2019-11-29 08:41 | PN ---
Progress Note, Physician Chief Complaint: AWAKE WALKING IN HALLWAYS DENIES CP/SOB - Current Medication List Current Medications: Active Medications Pantoprazole Sodium 80 mg/ (Sodium Chloride) 100 mls @ 10 mls/hr IVPB Q10H [facility] Last Admin: 11/29/19 00:41 Dose: 10 mls/hr - Objective Vital Signs: Vital Signs Temperature 97.6 F 11/29/19 06:30 Pulse Rate 45 L 11/29/19 06:30 Respiratory Rate 11/29/19 06:30 Blood Pressure 124/76 11/29/19 06:30 O2 Sat by Pulse Oximetry (%) 96 11/28/19 21:00 Constitutional: Yes: No Distress Cardiovascular: Yes: WNL Respiratory: Yes: WNL Gastrointestinal: Yes: WNL Integumentary: Yes: WNL Neurological: Yes: WNL Labs: CBC, BMP 11/29/19 06:05 11/28/19 06:00 INR, PTT INR 1.39 (0.83-1.09) H 11/26/19 15:30 Problem List - Problems (1) A-fib Code(s): I48.91 - UNSPECIFIED ATRIAL FIBRILLATION (2) Abdominal pain Code(s): R10.9 - UNSPECIFIED ABDOMINAL PAIN Qualifiers: Abdominal location: lower abdomen, unspecified Qualified Code(s): R10.30 - Lower abdominal pain, unspecified (3) At risk for dehydration due to poor fluid intake Code(s): Z91.89 - OTH PERSONAL RISK FACTORS, NOT ELSEWHERE CLASSIFIED (4) Chest pain Code(s): R07.9 - CHEST PAIN, UNSPECIFIED Qualifiers: Chest pain type: unspecified Qualified Code(s): R07.9 - Chest pain, unspecified (5) GI bleeding Code(s): K92.2 - GASTROINTESTINAL HEMORRHAGE, UNSPECIFIED Qualifiers: GI bleed type/associated pathology: melena Qualified Code(s): K92.1 - Melena (6) HLD (hyperlipidemia) Code(s): E78.5 - HYPERLIPIDEMIA, UNSPECIFIED (7) HTN (hypertension) Code(s): I10 - ESSENTIAL (PRIMARY) HYPERTENSION Assessment/Plan PROTONIX IV CONTINUE GI EVAL STOP ELIQUIS FOR NOW CARDIOLOGY WORKUP ON TELE F/U APPRECIATED IVF NPO
[2019-11-30 06:24] LABS: HEMATOCRIT 37.3 % (35.4-49); HEMOGLOBIN 12.5 GM/dL (11.7-16.9); MCH 31.2 pg (25.7-33.7); MCHC 33.6 g/dl (32.0-35.9); MEAN CELL VOLUME 92.7 fl (80-96); MEAN PLT VOLUME 7.4 fl (7.5-11.1); PLATELET COUNT 182 K/MM3 (134-434); RBC 4.02 M/mm3 (4.00-5.60); RDW 13.4 % (11.9-15.9); WHITE BLOOD COUNT 4.3 K/mm3 (4.0-10.0)
--- NOTE | 2019-11-30 09:31 | PN ---
Progress Note, Physician - Current Medication List Current Medications: Active Medications Pantoprazole Sodium 80 mg/ (Sodium Chloride) 100 mls @ 10 mls/hr IVPB Q10H [facility] Last Admin: 11/29/19 22:12 Dose: 10 mls/hr - Objective Vital Signs: Vital Signs Temperature 97.7 F 11/30/19 05:00 Pulse Rate 47 L 11/30/19 05:00 Respiratory Rate 20 11/30/19 05:00 Blood Pressure 140/94 11/30/19 05:00 O2 Sat by Pulse Oximetry (%) 97 11/29/19 21:00 Cardiovascular: Yes: S1, S2 Respiratory: Yes: Regular, CTA Bilaterally Gastrointestinal: Yes: Normal Bowel Sounds, Soft. No: Tenderness Labs: CBC, BMP 11/30/19 05:43 11/28/19 06:00 INR, PTT INR 1.39 (0.83-1.09) H 11/26/19 15:30 Problem List - Problems (1) GI bleeding Assessment/Plan: -Positive occult blood r/o GI bleed - GI NOTED FOR EGD TODAY - continue with PPI daily - NPO over night - Monitor H/H - Code(s): K92.2 - GASTROINTESTINAL HEMORRHAGE, UNSPECIFIED Qualifiers: GI bleed type/associated pathology: melena Qualified Code(s): K92.1 - Melena (2) Abdominal pain Assessment/Plan: ABOVE Code(s): R10.9 - UNSPECIFIED ABDOMINAL PAIN Qualifiers: Abdominal location: lower abdomen, unspecified Qualified Code(s): R10.30 - Lower abdominal pain, unspecified (3) A-fib Assessment/Plan: - trop: negative - EKG: no acute s/t changes - hold xarelto - monitor vitals - cardiology follow Code(s): I48.91 - UNSPECIFIED ATRIAL FIBRILLATION (4) HTN (hypertension) Code(s): I10 - ESSENTIAL (PRIMARY) HYPERTENSION
[2019-11-30] MEDS: PANTOPRAZOLE SODIUM 80 MG in SODIUM CHLORIDE 100 ML IVPB SCH ×2 (12:05→12:34)
--- NOTE | 2019-11-30 14:37 | PN ---
Progress Note (short form) - Note Progress Note: CT revealed prominent appendix. Will need surgical consultation to r/o appendiceal neoplasm
--- NOTE | 2019-11-30 15:21 | PN ---
Progress Note (short form) - Note Progress Note: patient s/p appendectomy 10 years ago patient made aware to undergo colonoscopy as an outpatient
--- NOTE | 2019-11-30 15:38 | PN ---
Progress Note, Physician History of Present Illness: pt seen and examined today in nad. ambulatory in the hallway. planned for EGD today. denies any complaints. no chest pain, sob, palpitations, lightheadedness, dizziness, syncope, or near syncope. - Current Medication List Current Medications: Active Medications Pantoprazole Sodium 80 mg/ (Sodium Chloride) 100 mls @ 10 mls/hr IVPB Q10H [facility] Last Admin: 11/30/19 12:34 Dose: Not Given - Objective Vital Signs: Vital Signs Temperature 98 F 11/30/19 09:00 Pulse Rate 50 L 11/30/19 09:00 Respiratory Rate 20 11/30/19 09:00 Blood Pressure 128/94 11/30/19 09:00 O2 Sat by Pulse Oximetry (%) 99 11/30/19 09:00 Constitutional: Yes: No Distress, Calm Eyes: Yes: Conjunctiva Clear, EOM Intact HENT: Yes: Atraumatic, Normocephalic Neck: Yes: Supple, Trachea Midline Cardiovascular: Yes: Regular Rate and Rhythm, S1, S2. No: Bradycardia, Tachycardia, Pulse Irregular, Bruit, JVD, Gallop, Murmur, Rub, S3, S4, Varicosities Respiratory: Yes: Regular, CTA Bilaterally. No: Rales, Rhonchi, Wheezes Gastrointestinal: Yes: Normal Bowel Sounds, Soft Musculoskeletal: Yes: WNL Extremities: Yes: WNL Edema: No Peripheral Pulses WNL: No Neurological: Yes: Alert, Oriented Psychiatric: Yes: Alert, Oriented Labs: CBC, BMP 11/30/19 05:43 11/28/19 06:00 INR, PTT INR 1.39 (0.83-1.09) H 11/26/19 15:30 - ....Imaging Chest X-ray: Report Reviewed, Image Reviewed EKG: Report Reviewed, Image Reviewed Other: Report Reviewed, Image Reviewed (tele-NSR, periods of sinus bradycardia 30-40s, asymptomatic) Assessment/Plan 69-year-old man, with a history of hypertension, atrial fibrillation, status post ablation earlier this year, on Xarelto, now presenting we have abdominal pain and melena. Afib -s/p ablation -on Xarelto at home, adm with GI bleed -hold Xarelto until it can be determined if safe to resume -has been sinus rhythm, sinus shelbie since admission -avoid AV shamika murray meds Bradycardia-asymptomatic sinus bradycardia -known chronic asymptomatic sinus bradycardia -not on AV shamika blockers at home due to this -asymptomatic and ambulatory in the halls -no further inpatient work up needed at this time. -[facility]coordinated [facility] outpatient fup Pt has been following with conversion developer. Dr. Esquivel at [address] [place] [address]. ok to dc tele. will see as needed. please call with any additional questions.
--- NOTE | 2019-11-30 15:40 | PN ---
Progress Note (short form) - Note Progress Note: s/p EGD with enteroscopy and biopsy --DX s/p gastric sleeve, 2.5cm esophageal ulcer --nonbleeding
[2019-11-30 16:22] VITALS: BP 104/81; PULSE 54
--- NOTE | 2019-11-30 16:56 | DS ---
Physical Examination Vital Signs: Vital Signs Temperature 98.2 F 11/30/19 15:45 Pulse Rate 54 L 11/30/19 16:20 Respiratory Rate 18 11/30/19 16:20 Blood Pressure 104/81 11/30/19 16:20 O2 Sat by Pulse Oximetry (%) 100 11/30/19 16:20 Labs: CBC, BMP 11/30/19 05:43 11/28/19 06:00 Discharge Summary Problems reviewed: Yes Reason For Visit: GI BLEED Current Active Problems A-fib (Acute) Abdominal pain (Acute) At risk for dehydration due to poor fluid intake (Acute) Bariatric surgery status (Acute) Bladder cancer (Acute) Chest pain (Acute) Early satiety (Acute) Family history of pancreatic cancer (Acute) Fatty liver (Acute) GERD (gastroesophageal reflux disease) (Acute) GI bleeding (Acute) HLD (hyperlipidemia) (Acute) HTN (hypertension) (Acute) Paroxysmal atrial fibrillation (Acute) S/P ablation of atrial fibrillation (Acute) Weight loss (Acute) Condition: Stable - Instructions Diet, Activity, Other Instructions: see surgeon to follow up on cat scan see dr valero in 2 weeks see your primary care doctor in one week for follow up and bloods Referrals: Marquita Remy MD [Primary Care Provider] - José Manuel Valero MD [Staff Physician] - Vini Newsome [Staff Physician] - Disposition: HOME - Home Medications Comprehensive Discharge Medication List: Ambulatory Orders Rivaroxaban [Xarelto -] 20 mg PO DAILY 04/28/18 Pantoprazole Sodium [Protonix -] 40 mg PO BID #60 tablet.ec 11/30/19
[2019-11-30] MEDS ORDERED: RIVAROXABAN 20 MG TABLET PO SCH (18:00)
[2019-11-30 18:49] VITALS: TEMP 97.9
[2019-11-30 21:07] LABS: HEP B CORE AB, TOT Negative (Negative)
[2019-11-30] MEDS ORDERED: PANTOPRAZOLE 40 MG TABLET (FP) PO SCH (22:00)
[2019-12-01 06:07] LABS: ALPHA 2 MACROGLOBULINS,QN 185 mg/dL (110-276); ALT(SGPT)P5P 9 IU/L (0-55); CHOLESTEROL TOTAL 168 mg/dL (100-199); FIBROSIS SCORE 0.27 (0.00-0.21); GLUCOSE SERUM 88 mg/dL (65-99); HEIGHT 67 in (.); WEIGHT- 168 LBS (.)
--- NOTE | 2019-12-02 15:12 | PATH ---
Surgical Pathology Report Patient Name: SHAYLA PATTERSON Med. Rec. #: [id number] /Age/Gender: 1950 (Age: 69) / M Account: [id number] Location: 4 W TELEMETRY U Taken: 11/30/2019 Received: 12/01/2019 Reported: 12/02/2019 Physicians: José Manuel Burt M.D. Specimen(s) Received DISTAL ESOPHAGUS ULCER Clinical History GI bleed Postoperative diagnosis: Went up to proximal jejunum, esophageal ulcer, gastritis Final Diagnosis DISTAL ESOPHAGUS, ULCER, BIOPSY: ACUTE INFLAMMATORY EXUDATE CONSISTENT WITH ULCER BASE. NO EPITHELIUM OR MUCOSA IDENTIFIED. PAS FUNGAL STAIN IS NEGATIVE. Electronically Signed Soni Javier M.D. Gross Description Received in formalin, labeled "biopsy ulcer in distal esophagus" is a galan, irregular portion of soft tissue measuring 0.1 cm. in greatest dimension. The specimen is submitted in toto in one cassette. /12/01/2019 saudi12/01/2019
== END 2019-11-30 19:21 | disposition home or self-care (01) | DRG 382 ==
LOC: JER 14:31 → JERBED 17:42 → J4W 20:32
PROVIDERS: ADMIT Family Medicine; ATTEND Family Medicine
PROC: 0DB58ZX Excision of Esophagus, Via Natural or Artificial Opening Endoscopic, Diagnostic (ICD-10-PCS; 2019-11-30)
PROC: 0DJ08ZZ Inspection of Upper Intestinal Tract, Via Natural or Artificial Opening Endoscopic (ICD-10-PCS; principal; 2019-11-30 11:00)
DX: K22.11 Ulcer of esophagus with bleeding (principal); R10.30 Lower abdominal pain, unspecified; N28.1 Cyst of kidney, acquired; R07.89 Other chest pain; I10 Essential (primary) hypertension; I48.91 Unspecified atrial fibrillation; E78.5 Hyperlipidemia, unspecified; K44.9 Diaphragmatic hernia without obstruction or gangrene; E86.0 Dehydration; I44.0 Atrioventricular block, first degree; R00.1 Bradycardia, unspecified; K76.0 Fatty (change of) liver, not elsewhere classified; R68.81 Early satiety; Z85.51 Personal history of malignant neoplasm of bladder; Z98.84 Bariatric surgery status; Z91.89 Other specified personal risk factors, not elsewhere classified
CPT/HCPCS: 36415; 71046-TC-FY; 74177-TC; 76705-TC; 80048; 80053; 82105; 82150; 82172; 82247; 82272; 82465; 82947; 82977; 83010; 83690; 83883; 84450; 84460; 84478; 84484; 85025; 85027; 85610; 85730; 86140; 86704; 86706; 86707; 86708; 86709; 86803; 87340; 88305-TC; 93005; 93010; 99284-25; J7030

== ENCOUNTER 2020-02-17 05:08 | Emergency (ER) | payer OTHER, BC ==
[2020-02-17 05:38] VITALS: BMI 26.6
[2020-02-17] MEDS ORDERED: ACETAMINOPHEN 1000 MG/100 ML VIAL (NON FORMULARY) IVPB ONE (06:05)
[2020-02-17] MEDS ORDERED: ACETAMINOPHEN INJECTION 100 ML IVPB ONE (06:36)
[2020-02-17 07:11] LABS: BASO % 0.8 % (0-2.0); EOS % 2.3 % (0-4.5); HEMATOCRIT 43.9 % (35.4-49); HEMOGLOBIN 15.1 GM/dL (11.7-16.9); LYMPH % 20.7 % (8-40); MCH 31.5 pg (25.7-33.7); MCHC 34.4 g/dl (32.0-35.9); MEAN CELL VOLUME 91.6 fl (80-96); MEAN PLT VOLUME 7.6 fl (7.5-11.1); MONO % 8.8 % (3.8-10.2); NEUT % 67.4 % (42.8-82.8); PLATELET COUNT 193 K/MM3 (134-434); RBC 4.79 M/mm3 (4.00-5.60); RDW 14.1 % (11.9-15.9); WHITE BLOOD COUNT 5.7 K/mm3 (4.0-10.0)
[2020-02-17 07:54] LABS: INR 1.07 (0.83-1.09); PROTHROMBIN TIME (PATIENT) 12.6 SEC (9.7-13.0)
[2020-02-17 08:00] LABS: ALBUMIN 3.4 g/dl (3.4-5.0); BILIRUBIN,TOTAL 0.5 mg/dL (0.2-1); BLOOD UREA NITROGEN 15.5 mg/dL (7-18); CALCIUM 8.7 mg/dL (8.5-10.1); CREATININE 0.8 mg/dL (0.55-1.3); POTASSIUM 4.5 mmol/L (3.5-5.1); TOT PROT 6.9 g/dl (6.4-8.2)
[2020-02-17 08:41] LABS: URINE APPEARANCE CLEAR; URINE BILIRUBIN NEGATIVE (NEGATIVE); URINE COLOR YELLOW; URINE GLUCOSE (UA) NEGATIVE (NEGATIVE); URINE KETONE NEGATIVE (NEGATIVE); URINE LEUK ESTERASE NEGATIVE (NEGATIVE); URINE NITRITE NEGATIVE (NEGATIVE); URINE PROTEIN NEGATIVE (NEGATIVE); URINE UROBILINOGEN 0.2 mg/dL (0.2-1.0)
[2020-02-17 09:42] VITALS: BP 147/92; PULSE 61; TEMP 98.3
--- NOTE | 2020-02-17 10:31 | PDOC ---
Documentation entered by Brenda Lockhart SCRIBE, acting as scribe for Feng Faulkner MD. Feng Faulkner MD: This documentation has been prepared by the Richy up [place], SCRIBE, under my direction and personally reviewed by me in its entirety. I confirm that the documentation accurately reflects all work, treatment, procedures, and medical decision making performed by me. History of Present Illness - General Chief Complaint: Pain, Acute Stated Complaint: GROIN PAIN Time Seen by Provider: 02/17/20 07:50 History Source: Patient Exam Limitations: No Limitations - History of Present Illness Initial Comments: 02/17/20 08:03 The patient is a 69 year old male with a significant PMH of bladder ca (2007, follows at [facility]) who presents to the emergency department for L groin pain. Pt states his pain initially began as L lower back and since then has radiated to his L groin. Pt describes the pain as severe, sharp, like "someone punched him in his groin." Pt states his pain is worsened when changing positions. Pt notes he took Motrin last night at 8:30pm and at 12am, with no improvement of symptoms. The patient denies chest pain, shortness of breath, headache and dizziness. Denies fever, chills, cough, nausea, vomiting, diarrhea and constipation. Denies dysuria, frequency, urgency and hematuria. Allergies: Penicillins, ibuprofen Past History - Past Medical History Allergies/Adverse Reactions: Allergies Allergy/AdvReac Type Severity Reaction Status Date / Time Penicillins Allergy Rash Verified 11/26/19 14:39 ibuprofen AdvReac Verified 11/26/19 14:39 Home Medications: Ambulatory Orders Rivaroxaban [Xarelto -] 20 mg PO DAILY 04/28/18 Pantoprazole Sodium [Protonix -] 40 mg PO BID #60 tablet.ec 11/30/19 Anemia: No Asthma: No Cancer: Yes (CA BLADDER S/P IN 2007) Cardiac Disorders: Yes (A FIB, cyroablation 9 mons ago) CVA: No COPD: No CHF: No Dementia: No Diabetes: No GI Disorders: No Disorders: No HTN: Yes Hypercholesterolemia: No Liver Disease: No Seizures: No Thyroid Disease: No - Surgical History Abdominal Surgery: Yes (gastric sleeve) Appendectomy: Yes Cardiac Surgery: No Cholecystectomy: No Lung Surgery: No Neurologic Surgery: No Orthopedic Surgery: No - Immunization History Immunization Up to Date: Yes - Psycho Social/Smoking Cessation Hx Smoking Status: Yes Smoking History: Never smoked Have you smoked in the past 12 months: No Number of Cigarettes Smoked Daily: 0 (does smoke cigars several times a week) If you are a former smoker, when did you quit?: 2001 Cigars Per Day: 1 Hx Alcohol Use: No Drug/Substance Use Hx: No Substance Use Type: None Hx Substance Use Treatment: No Review of Systems - Review of Systems Able to Perform ROS?: Yes Comments:: 02/17/20 08:18 CONSTITUTIONAL: No fever, no chills, no fatigue EYES: No visual changes ENT: No ear pain, no sore throat CARDIOVASCULAR: No chest pain, no palpitations RESPIRATORY: No cough, no SOB GI: No abdominal pain, no nausea, no vomiting, no constipation, no diarrhea GENITOURINARY: No dysuria, no frequency, no hematuria MUSKULOSKELETAL: +L lower backpain, +L groin pain. no joint pain, no myalgias SKIN: No rash NEURO: No headache *Physical Exam - Vital Signs Last Vital Signs Temp Pulse Resp BP Pulse Ox 97.1 F L 58 L 16 166/92 96 02/17/20 05:16 02/17/20 05:16 02/17/20 05:16 02/17/20 05:16 02/17/20 05:16 - Physical Exam 02/17/20 10:29 EXAMINATION CONSTITUTIONAL: Well-appearing; well-nourished; in no apparent distress HEAD: Normocephalic; atraumatic EYES: PERRL; EOM intact ENMT: External appears normal; normal oropharynx NECK: Supple; non-tender; no cervical lymphadenopathy CARD: Normal S1, S2; no murmurs, rubs, or gallops RESP: Normal chest excursion with respiration; breath sounds clear and equal bilaterally; no wheezes, rhonchi, or rales ABD: Soft, non-distended; non-tender; no palpable organomegaly, no palpable hernias : No penile lesions, both testicles were normal lie; mild soft tissue swelli ng is noted to the posterior superior aspect of the left testicle, mildly tender to palpation; no hernias are appreciated bilaterally. EXT: Normal ROM in all four extremities; non-tender to palpation; distal pulses intact SKIN: Warm, dry, no rash NEURO: No focal neurological deficiencies. ED Treatment Course - LABORATORY CBC & Chemistry Diagram: 02/17/20 06:50 02/17/20 06:50 - ADDITIONAL ORDERS Additional order review: Laboratory Results 02/17/20 06:20 PT with INR 12.60 INR 1.07 - Medications Given in the ED: ED Medications Discontinued Medications Generic Name Dose Route Start Last Admin Trade Name Hamzah PRN Reason Stop Dose Admin Acetaminophen 1,000 mg 02/17/20 06:05 02/17/20 06:49 Ofirmev Injection - IVPB 02/17/20 06:06 1,000 mg ONCE ONE Administration Medical Decision Making - Medical Decision Making 02/17/20 10:29 69-year-old male presents to the ER with atraumatic left groin pain. In the ER, patient is awake and alert, nontoxic-appearing. Serial exams reveal no evidence of pulsatile mass. There is no significant abdominal bruit noted. There are no hernias appreciated. Left varicocele is noted, confirmed by ultrasound. Urinalysis within normal limit without evidence of hematuria. I do not suspect AAA or nephrolithiasis at this time. Will discharge with outpatient urology follow-up. Discharge - Discharge Information Problems reviewed: Yes Clinical Impression/Diagnosis: Varicocele, Scrotal pain Condition: Stable Disposition: HOME - Follow up/Referral Referrals: Marquita Remy MD [Primary Care Provider] - Dane Schulte MD [Staff Physician] - - Patient Discharge Instructions Patient Printed Discharge Instructions: DI for Varicocele - Post Discharge Activity
== END 2020-02-17 10:38 | disposition home or self-care (01) ==
LOC: JER 05:08
DX: I86.1 Scrotal varices (principal)
CPT/HCPCS: 36415; 76870-TC; 80053; 81003; 85025; 85610; 99284-25; J0131

== ENCOUNTER 2020-02-22 09:51 | Emergency (ER) | payer OTHER, BC ==
[2020-02-22 10:03] VITALS: BP 169/102; PULSE 66; TEMP 97.7; BMI 26.6
[2020-02-22] MEDS ORDERED: ACETAMINOPHEN 1000 MG/100 ML VIAL (NON FORMULARY) IVPB ONE (10:59)
[2020-02-22] MEDS ORDERED: ACETAMINOPHEN INJECTION 100 ML IVPB ONE (11:20)
[2020-02-22 11:37] LABS: BASO % 0.6 % (0-2.0); EOS % 2.3 % (0-4.5); HEMATOCRIT 46.9 % (35.4-49); HEMOGLOBIN 15.7 GM/dL (11.7-16.9); LYMPH % 25.8 % (8-40); MCH 31.1 pg (25.7-33.7); MCHC 33.5 g/dl (32.0-35.9); MEAN CELL VOLUME 92.8 fl (80-96); MEAN PLT VOLUME 8.5 fl (7.5-11.1); MONO % 9.5 % (3.8-10.2); NEUT % 61.8 % (42.8-82.8); PLATELET COUNT 218 K/MM3 (134-434); RBC 5.05 M/mm3 (4.00-5.60); WHITE BLOOD COUNT 6.2 K/mm3 (4.0-10.0)
[2020-02-22 12:02] LABS: ALBUMIN 3.8 g/dl (3.4-5.0); BILIRUBIN,TOTAL 0.7 mg/dL (0.2-1); BLOOD UREA NITROGEN 21.1 mg/dL (7-18); CALCIUM 9.1 mg/dL (8.5-10.1); CREATININE 0.9 mg/dL (0.55-1.3); POTASSIUM 4.3 mmol/L (3.5-5.1); TOT PROT 7.6 g/dl (6.4-8.2)
--- NOTE | 2020-02-22 12:33 | PDOC ---
History of Present Illness - General Chief Complaint: Pain Stated Complaint: GROIN PAIN Time Seen by Provider: 02/22/20 10:37 History Source: Patient Exam Limitations: No Limitations Past History - Travel Traveled outside of the country in the last 30 days: No Close contact w/someone who was outside of country & ill: No - Past Medical History Allergies/Adverse Reactions: Allergies Allergy/AdvReac Type Severity Reaction Status Date / Time Penicillins Allergy Rash Verified 02/22/20 10:03 ibuprofen AdvReac Verified 02/22/20 10:03 Home Medications: Ambulatory Orders Rivaroxaban [Xarelto -] 20 mg PO DAILY 04/28/18 Pantoprazole Sodium [Protonix -] 40 mg PO BID #60 tablet.ec 11/30/19 Acetaminophen [Tylenol -] 1,000 mg PO Q6H #100 tablet 02/22/20 Anemia: No Asthma: No Cancer: Yes (CA BLADDER S/P IN 2007) Cardiac Disorders: Yes (A FIB, cyroablation 9 mons ago) CVA: No COPD: No CHF: No Dementia: No Diabetes: No GI Disorders: No Disorders: No HTN: Yes Hypercholesterolemia: No Liver Disease: No Seizures: No Thyroid Disease: No - Surgical History Abdominal Surgery: Yes (gastric sleeve) Appendectomy: Yes Cardiac Surgery: No Cholecystectomy: No Lung Surgery: No Neurologic Surgery: No Orthopedic Surgery: No - Immunization History Immunization Up to Date: Yes - Psycho Social/Smoking Cessation Hx Smoking Status: Yes Smoking History: Former smoker Have you smoked in the past 12 months: No Number of Cigarettes Smoked Daily: 0 (does smoke cigars several times a week) If you are a former smoker, when did you quit?: 2000 Cigars Per Day: 1 Information on smoking cessation initiated: No Hx Alcohol Use: No Drug/Substance Use Hx: No Substance Use Type: None Hx Substance Use Treatment: No Review of Systems - Review of Systems Able to Perform ROS?: Yes Comments:: 02/22/20 12:11 CONSTITUTIONAL: Absent: fever, chills, diaphoresis, generalized weakness, malaise, loss of appetite HEENT: Absent: rhinorrhea, nasal congestion, throat pain, throat swelling, difficulty swallowing, mouth swelling, ear pain, eye pain, visual Changes CARDIOVASCULAR: Absent: chest pain, loss of consciousness, palpitations, irregular heart rate, peripheral edema RESPIRATORY: Absent: cough, shortness of breath, dyspnea with exertion, orthopnea, wheezing, stridor, hemoptysis GASTROINTESTINAL: Absent: abdominal pain, abdominal distension, nausea, vomiting, diarrhea, constipation, melena, hematochezia GENITOURINARY: Present: L groin pain Absent: dysuria, frequency, urgency, hesitancy, hematuria, flank pain, genital pain MUSCULOSKELETAL: Absent: myalgia, arthralgia, joint swelling SKIN: Absent: rash, itching, pallor NEUROLOGIC: Absent: headache, focal weakness or paresthesias, dizziness, unsteady gait, seizure, mental status changes, bladder or bowel incontinence PSYCHIATRIC: Absent: anxiety, depression, suicidal or homicidal ideation, hallucinations. Is the patient limited [place]ian proficient: No *Physical Exam - Vital Signs Last Vital Signs Temp Pulse Resp BP Pulse Ox 97.7 F 66 18 169/102 H 97 02/22/20 09:58 02/22/20 09:58 02/22/20 09:58 02/22/20 09:58 02/22/20 09:58 - Physical Exam 02/22/20 15:54 GENERAL: Well developed, well nourished. Awake and alert. No acute distress. HEENT: Normocephalic, atraumatic. PERRLA, EOMI. No conjunctival pallor. Sclera are non- icteric. Moist mucous membranes. Oropharynx is clear. NECK: Supple. Full ROM. No lymphadenopathy. CARDIOVASCULAR: Regular rate and rhythm. No murmurs, rubs, or gallops. Distal pulses are 2+ and symmetric. PULMONARY: No evidence of respiratory distress. Lungs clear to auscultation bilaterally. No wheezing, rales or rhonchi. ABDOMINAL: Soft. Non-tender. Non-distended. No rebound or guarding. No organomegaly. Normoactive bowel sounds. : (+) cremasteric reflex b/l. TTP of the L testicle. L testicle is freely mobile, bag of worms type texture. No hernias palpated on direct or indirect exam. MUSCULOSKELETAL Normal range of motion at all joints. No bony deformities or tenderness. No CVA tenderness. EXTREMITIES: No cyanosis. No clubbing. No edema. No calf tenderness. SKIN: Warm and dry. Normal capillary refill. No rashes. No jaundice. NEUROLOGICAL: Alert, awake, appropriate. Cranial nerves 2-12 intact. No deficits to light touch and temperature in face, upper extremities and lower extremities. No motor deficits in the in face, upper extremities and lower extremities. Normoreflexic in the upper and lower extremities. Normal speech. Toes are down-going bilaterally. Gait is normal without ataxia. PSYCHIATRIC: Cooperative. Good eye contact. Appropriate mood and affect. ED Treatment Course - LABORATORY CBC & Chemistry Diagram: 02/22/20 11:17 02/22/20 11:17 - ADDITIONAL ORDERS Additional order review: Laboratory Results 02/22/20 11:17 Sodium 140 Potassium 4.3 Chloride 104 Carbon Dioxide 31 Anion Gap 4 L BUN 21.1 H Creatinine 0.9 Est GFR (CKD-EPI)AfAm 100.65 Est GFR (CKD-EPI)NonAf 86.84 Random Glucose 94 Calcium 9.1 Total Bilirubin 0.7 AST 15 ALT 17 Alkaline Phosphatase 43 L Total Protein 7.6 Albumin 3.8 02/22/20 11:17 RBC 5.05 MCV 92.8 MCHC 33.5 RDW 14.0 MPV 8.5 D Neutrophils % 61.8 Lymphocytes % 25.8 D Monocytes % 9.5 Eosinophils % 2.3 Basophils % 0.6 - Medications Given in the ED: ED Medications Discontinued Medications Generic Name Dose Route Start Last Admin Trade Name Freq PRN Reason Stop Dose Admin Acetaminophen 1,000 mg 02/22/20 10:59 02/22/20 11:24 Ofirmev Injection - IVPB 02/22/20 11:00 1,000 mg ONCE ONE Administration Medical Decision Making - Medical Decision Making 02/22/20 13:01 The patient is a 69-year-old male with past medical history of hypertension, presents to ER today with left scrotal pain. He states he was seen here 4 days ago with similar symptoms and diagnosed with a "cyst ". He states that it still hurts and he has been unable to care follow-up as an outpatient due to coronavirus. He states he takes ibuprofen at home with some relief of his pain however the pain returns about an hour after taking the medication. Denies dysuria, hematuria, back pain, abdominal pain, nausea, vomiting and diarrhea. A/P: Scrotal pain See exam findings and the section. No acute concern for torsion. Scrotal ultrasound reviewed from 4 days ago. Patient has a small left-sided varicocele most likely the cause of his pain. No hernias palpated on exam. Given complaint bounce back, basic labs were drawn. No acute abnormalities or signs of infection. Unlikely hernia or abdominal pathology. Off her meds given in the ER with relief of symptoms. Discharge home with pain control and supportive therapy. New urology consult given hopefully patient can follow-up within the next week. Strict return precautions given. I discussed the physical exam findings, ancillary test results and final diagnoses with the patient. I answered all of the patient's questions. The patie nt was satisfied with the care received and felt comfortable with the discharge plan and treatment plan. The Patient agrees to follow up with the primary care physician/specialist within 24-72 hours. Return precautions were given. Discharge - Discharge Information Problems reviewed: Yes Clinical Impression/Diagnosis: Scrotal pain Condition: Stable Disposition: HOME - Admission No - Additional Discharge Information Prescriptions: Acetaminophen [Tylenol -] 1,000 mg PO Q6H #100 tablet - Follow up/Referral Referrals: Marquita Remy MD [Primary Care Provider] - Ba Schulte MD [Non Staff, Medical] - - Patient Discharge Instructions Patient Printed Discharge Instructions: DI for Varicocele Additional Instructions: You were seen for your groin pain today You have a varicocele which is an inflamed blood vessel in the scrotal area. Please wear scrotal support until your pain goes away Ice area for 20 minute intervals until your symptoms improve. Take Tylenol and ibuprofen as needed for pain Return to the ER for any new or worsening symptoms - Post Discharge Activity
== END 2020-02-22 12:46 | disposition home or self-care (01) ==
LOC: JER 09:51
DX: N50.819 Testicular pain, unspecified (principal)
CPT/HCPCS: 36415; 80053; 85025; 99283-25; J0131

== ENCOUNTER 2021-05-29 11:55 | Inpatient (IN) | payer OTHER, BC ==
[2021-05-29 12:02] VITALS: BMI 27.8
[2021-05-29 12:39] LABS: BASO % 0.6 % (0-2.0); EOS % 8.9 % (0-4.5); HEMATOCRIT 49.2 % (35.4-49); HEMOGLOBIN 16.3 GM/dL (11.7-16.9); LYMPH % 26.6 % (8-40); MCH 31.3 pg (25.7-33.7); MCHC 33.2 g/dl (32.0-35.9); MEAN CELL VOLUME 94.4 fl (80-96); MEAN PLT VOLUME 7.9 fl (7.5-11.1); MONO % 7.5 % (3.8-10.2); NEUT % 56.4 % (42.8-82.8); PLATELET COUNT 186 10^3/uL (134-434); RBC 5.22 M/mm3 (4.00-5.60); RDW 13.8 % (11.9-15.9); WHITE BLOOD COUNT 5.7 K/mm3 (4.0-10.0)
[2021-05-29 12:45] LABS: INR 1.38 (0.83-1.09); PROTHROMBIN TIME (PATIENT) 16.8 SEC (9.7-13.0)
[2021-05-29 13:07] LABS: CHLORIDE 108 mmol/L (98-107); SODIUM 141 mmol/L (136-145)
[2021-05-29 13:09] LABS: ALBUMIN 3.6 g/dl (3.4-5.0); ANION GAP 5 MMOL/L (8-16); BLOOD UREA NITROGEN 20.1 mg/dL (7-18); CALCIUM 8.4 mg/dL (8.5-10.1); CO2 29 mmol/L (21-32)
[2021-05-29 13:10] LABS: GLUCOSE,RANDOM 114 mg/dL (74-106)
[2021-05-29 13:12] LABS: CREATININE 0.9 mg/dL (0.55-1.3); SGOT/AST 20 U/L (15-37); SGPT/ALT 18 U/L (13-61)
[2021-05-29 13:14] LABS: BILIRUBIN,TOTAL 0.8 mg/dL (0.2-1); TOT PROT 7.1 g/dl (6.4-8.2)
[2021-05-29 13:15] LABS: ALK PHOS 45 U/L (45-117)
[2021-05-29] MEDS: RIVAROXABAN 20 MG TABLET PO SCH (23:04)
[2021-05-30] MEDS ORDERED: ACETAMINOPHEN WITH CODEINE 300MG/30MG TABLET PO ONE (00:12)
[2021-05-30 07:29] LABS: BASO % 0.8 % (0-2.0); EOS % 9.4 % (0-4.5); HEMATOCRIT 42.8 % (35.4-49); HEMOGLOBIN 14.5 GM/dL (11.7-16.9); LYMPH % 35.8 % (8-40); MCH 31.6 pg (25.7-33.7); MCHC 33.9 g/dl (32.0-35.9); MEAN CELL VOLUME 93.2 fl (80-96); MEAN PLT VOLUME 7.7 fl (7.5-11.1); MONO % 8.8 % (3.8-10.2); NEUT % 45.2 % (42.8-82.8); PLATELET COUNT 169 10^3/uL (134-434); RBC 4.59 M/mm3 (4.00-5.60); RDW 13.7 % (11.9-15.9); WHITE BLOOD COUNT 5.8 K/mm3 (4.0-10.0)
[2021-05-30 07:36] LABS: CHLORIDE 107 mmol/L (98-107); SODIUM 141 mmol/L (136-145)
[2021-05-30 07:38] LABS: ANION GAP 4 MMOL/L (8-16); BLOOD UREA NITROGEN 20.4 mg/dL (7-18); CALCIUM 8.1 mg/dL (8.5-10.1); CO2 30 mmol/L (21-32); GLUCOSE,RANDOM 88 mg/dL (74-106)
[2021-05-30 07:39] LABS: ALBUMIN 3.2 g/dl (3.4-5.0)
[2021-05-30 07:42] LABS: SGOT/AST 15 U/L (15-37); SGPT/ALT 16 U/L (13-61)
[2021-05-30 07:43] LABS: BILIRUBIN,TOTAL 1.5 mg/dL (0.2-1); TOT PROT 6.2 g/dl (6.4-8.2)
[2021-05-30 07:45] LABS: ALK PHOS 37 U/L (45-117)
[2021-05-30 07:48] LABS: CREATININE 0.9 mg/dL (0.55-1.3)
[2021-05-30] MEDS ORDERED: ACETAMINOPHEN 1000 MG/100 ML VIAL (NON FORMULARY) IVPB ONE (08:15)
[2021-05-30] MEDS: RIVAROXABAN 20 MG TABLET PO SCH (17:12)
[2021-05-30] MEDS ORDERED: RIVAROXABAN 20 MG TABLET PO SCH (18:00)
[2021-05-30] MEDS ORDERED: ATROPINE SO4 0.4 MG/1 ML VIAL IVPUSH PRN (22:30)
[2021-05-31 07:27] LABS: BASO % 0.9 % (0-2.0); EOS % 7.8 % (0-4.5); HEMATOCRIT 41.4 % (35.4-49); HEMOGLOBIN 13.9 GM/dL (11.7-16.9); LYMPH % 35.4 % (8-40); MCH 31.3 pg (25.7-33.7); MCHC 33.5 g/dl (32.0-35.9); MEAN CELL VOLUME 93.5 fl (80-96); MEAN PLT VOLUME 7.7 fl (7.5-11.1); MONO % 8.3 % (3.8-10.2); NEUT % 47.6 % (42.8-82.8); PLATELET COUNT 166 10^3/uL (134-434); RBC 4.43 M/mm3 (4.00-5.60); RDW 13.5 % (11.9-15.9); WHITE BLOOD COUNT 5.2 K/mm3 (4.0-10.0)
[2021-05-31 07:56] LABS: ALBUMIN 3.1 g/dl (3.4-5.0); BILIRUBIN,TOTAL 0.9 mg/dL (0.2-1)
[2021-05-31 07:57] LABS: BLOOD UREA NITROGEN 15.5 mg/dL (7-18); MAGNESIUM 2.2 mg/dL (1.8-2.4); TOT PROT 6.1 g/dl (6.4-8.2)
[2021-05-31 07:59] LABS: CREATININE 0.8 mg/dL (0.55-1.3); PHOSPHOROUS 3.6 mg/dL (2.5-4.9)
[2021-05-31] MEDS ORDERED: VANCOMYCIN 1 GM in D5W (PRE-DOCKED) 1,000 MG/250 ML IVPB ONE ×2 (10:00→22:30)
[2021-05-31 13:53] VITALS: BP 121/81; PULSE 71; TEMP 97.8
== END 2021-05-31 15:22 | disposition left against medical advice (07) | DRG 313 ==
LOC: JER 11:55 → JERBED 15:21 → J4W 19:17
PROVIDERS: ATTEND Student in an Organized Health Care Education/Training Program
DX: R07.89 Other chest pain (principal); I48.91 Unspecified atrial fibrillation; E78.5 Hyperlipidemia, unspecified; K21.9 Gastro-esophageal reflux disease without esophagitis; I45.5 Other specified heart block; K76.0 Fatty (change of) liver, not elsewhere classified; R00.1 Bradycardia, unspecified; Z85.51 Personal history of malignant neoplasm of bladder; Z98.84 Bariatric surgery status
CPT/HCPCS: 36415; 71046-TC-FY; 80053; 82550; 83735; 84100; 84484; 85025; 85610; 85730; 93005; 93010; 93306-TC; 99285-25; C9803; J0131; U0003; U0005

== ENCOUNTER 2021-09-02 12:44 | Emergency (ER) | payer OTHER, BC ==
[2021-09-02 12:56] VITALS: BP 153/97; PULSE 59; TEMP 97.7; BMI 26.1
[2021-09-02] MEDS ORDERED: ACETAMINOPHEN 500 MG TABLET (FP) PO ONE (13:50)
[2021-09-02] MEDS ORDERED: ACETAMINOPHEN 325 MG TABLET (FP) ONE (13:56)
[2021-09-02] MEDS ORDERED: DIPHTH,PERTUSS(ACELL),TET 0.5 ML DISP.SYRIN IM ONE ×2 (15:29→15:35)
== END 2021-09-02 15:42 | disposition home or self-care (01) ==
LOC: JER 12:44 → JERFT 12:44 → JER 15:42
PROC: 3E0234Z Introduction of Serum, Toxoid and Vaccine into Muscle, Percutaneous Approach (ICD-10-PCS; principal; 2021-09-02)
DX: S00.91XA Abrasion of unspecified part of head, initial encounter (principal); S00.03XA Contusion of scalp, initial encounter; W20.8XXA Other cause of strike by thrown, projected or falling object, initial encounter
CPT/HCPCS: 70450-TC; 73030-TC-RT-FY; 90471; 90715; 99284-25

== ENCOUNTER 2022-03-27 11:15 | Emergency (ER) | payer OTHER, BC ==
[2022-03-27 11:25] VITALS: BP 138/87; PULSE 52; TEMP 98; BMI 26.6
[2022-03-27] MEDS ORDERED: ACETAMINOPHEN 500 MG TABLET (FP) PO ONE (12:09)
[2022-03-27] MEDS ORDERED: ACETAMINOPHEN 500 MG TABLET (FP) ONE (12:11)
== END 2022-03-27 12:27 ==
LOC: JERFT 11:15
DX: S60.222A Contusion of left hand, initial encounter (principal); W20.8XXA Other cause of strike by thrown, projected or falling object, initial encounter
CPT/HCPCS: 73130-TC-LT-FY; 99283-25

== ENCOUNTER 2022-04-19 01:21 | Emergency (ER) | payer OTHER, BC ==
[2022-04-19 01:44] VITALS: BP 175/99; PULSE 98; TEMP 98.3; BMI 26.6
[2022-04-19] MEDS ORDERED: TETRACAINE 0.5% OPHTH SOLN 2 ML BOTTLE OU ONE (02:23)
[2022-04-19] MEDS ORDERED: CYCLOPENTOLATE 2% OPHTH SOLN 2 ML BOTTLE OU ONE (02:23)
[2022-04-19] MEDS ORDERED: FLUORESCEIN NA 1 EA STRIP OU ONE (02:26)
[2022-04-19] MEDS ORDERED: BACITRACIN 0.9 GM PACKET TP SCH (02:30)
[2022-04-19] MEDS ORDERED: FLUORESCEIN NA 1 EA STRIP ONE (02:42)
[2022-04-19] MEDS ORDERED: TETRACAINE 0.5% OPHTH SOLN 2 ML BOTTLE ONE (02:42)
[2022-04-19] MEDS ORDERED: BACITRACIN 0.9 GM PACKET ONE (02:42)
[2022-04-19] MEDS ORDERED: BACITRACIN 3.5 GM OPTHALMIC OINT TUBE OD SCH (03:00)
[2022-04-19] MEDS ORDERED: BACITRACIN/POLYMYXIN OPH OINT 3.5 GM TUBE OD SCH (03:00)
== END 2022-04-19 03:35 | disposition left against medical advice (07) ==
LOC: JER 01:21
DX: H16.133 Photokeratitis, bilateral (principal)
CPT/HCPCS: 99283-25